=== PATIENT | male | born 1980 ===

== ENCOUNTER 2017-04-21 17:24 | Emergency (ER) | payer SELFPAY ==
--- NOTE | 2017-04-21 17:58 | EDM.PDOC ---
Scribed by Geeta Coello 04/21/17 5926 for Graham Bell MD ED HPI GENERAL MEDICAL PROBLEM - General Chief Complaint: Drug or Alcohol Abuse Stated Complaint: medical clearance [employer] Time Seen by Provider: 04/21/17 17:52 Source of Information: Reports: Patient, RN, RN Notes Reviewed History Limitations: Reports: No Limitations - History of Present Illness INITIAL COMMENTS - FREE TEXT/NARRATIVE: Patient was brought by police for medical clearance for greater then breathalizer greater than .30. Patient's significant other posted bail [place] prior to triage, therefore, the airconditioning drafting officer released him from custody and stated that he no longer required medical clearance. Patient chose to leave without being seen. ED ROS GENERAL - Review of Systems Review Of Systems: Unable To Obtain (left without being seen.) ED EXAM, GENERAL - Physical Exam Exam: Not Obtained (left without being seen.) Departure - Departure Time of Disposition: 17:56 Disposition: Left Without Being Seen 07 Condition: Undetermined Clinical Impression: Patient left without being seen - Discharge Information I have read and agree with the documentation that has been completed regarding this visit. By signing this record, I attest that the documentation was completed in my physical presence and is an accurate record of the encounter.
== END 2017-04-21 17:56 | disposition left against medical advice (07) ==
LOC: DL.ED 17:24
DX: Z53.21 Procedure and treatment not carried out due to patient leaving prior to being seen by health care provider (principal)